=== PATIENT | male | born 1995 | race Caucasian/White ===

== ENCOUNTER 2024-07-09 15:54 | Emergency (ER) | payer OTHER, SELFPAY ==
[2024-07-09 15:54] VITALS: BP 147/91; PULSE 79; RESP 14; TEMP 36.6; O2SAT 98; BMI 26.3
--- NOTE | 2024-07-09 16:07 | CT_ITS ---
PROCEDURE: SINUS/FACIAL BONE REASON FOR EXAM: LEFT ORBITAL TRAUMA TECHNIQUE: CT of the paranasal sinuses without contrast. Coronal and Sagittal reconstruction series were provided. One or more dose reduction techniques were used (e.g., Automated exposure control, adjustment of the mA and/or kV according to patient size, use of iterative reconstruction technique). FINDINGS: Correlated with CT performed at the same time. Normal mandible. Normal zygomatic arches. Normal nasal bones. Pterygoid plates maintained. There is concavity to the medial wall of the left orbit which may be acute. However this could represent a nondisplaced fracture which could be the culprit for the infraorbital air CT/Sinus/Facial Bone IMPRESSION: Fracture of the medial wall of the left orbit probably the source of the infrao rbital air on the left side Reading [facility]
--- NOTE | 2024-07-09 16:07 | CT_ITS ---
PROCEDURE: SPINE CERVICAL WITHOUT CONTRAS 07/09/2024 REASON FOR EXAM: TRAUMA TECHNIQUE: Cervical spine CT without contrast. Coronal and Sagittal reconstruction series were provided. One or more dose reduction techniques were used (e.g., Automated exposure control, adjustment of the mA and/or kV according to patient size, use of iterative reconstruction technique RADIATION DOSE SUMMARY: DLP: 390.70 mGycm COMPARISON: None. FINDINGS: No evidence acute fracture or dislocation. Vertebral body heights are maintained. The soft tissues are unremarkable. CT/Spine Cervical without Contras IMPRESSION: NO ACUTE CERVICAL FRACTURE Reading Location: [place] [id number]
--- NOTE | 2024-07-09 16:07 | CT_ITS ---
PROCEDURE: CT CHEST, ABD, PEL W/CONTRAST 07/09/2024 REASON FOR EXAM: POLY TRAUMA TECHNIQUE: Chest, abdomen and pelvis CT with intravenous contrast. Coronal and Sagittal reconstruction series were provided. One or more dose reduction techniques were used (e.g., Automated exposure control, adjustment of the mA and/or kV according to patient size, use of iterative reconstruction technique. PATIENT PREPARATION: Per protocol ORAL CONTRAST TYPE: None. AMOUNT: mL CONTRAST: Isovue 3 7 VOLUME: 97mL Gauge IV RADIATION DOSE SUMMARY: DLP: 196.81 mGycm COMPARISON: None. FINDINGS: CT CHEST: Hardware: Unremarkable Lymph nodes: Unremarkable Heart and Vasculature: Unremarkable Lungs and Airways: Unremarkable Pleura: Unremarkable Bones: Unremarkable CT ABDOMEN/PELVIS: Liver: Right hepatic cyst. Gallbladder: Unremarkable Spleen: Unremarkable Pancreas: Unremarkable Adrenals: Unremarkable Kidneys: Unremarkable Bladder: Unremarkable Reproductive Organs: Unremarkable Bowel: Unremarkable Appendix: Unremarkable Lymph nodes: Unremarkable Vasculature: Unremarkable Peritoneum / Retroperitoneum: Unremarkable Bones: Unremarkable CT/CT Chest, Abd, Pel w/Contrast IMPRESSION: No acute traumatic abnormalities of the chest, abdomen, or pelvis. Reading Location: [place] [id number]
--- NOTE | 2024-07-09 16:07 | CT_ITS ---
PROCEDURE: BRAIN/HEAD WITHOUT CONTRAST 07/09/2024 REASON FOR EXAM: TRAUMA TECHNIQUE: Head CT without intravenous contrast. Coronal and Sagittal reconstruction series were provided. One or more dose reduction techniques were used (e.g., Automated exposure control, adjustment of the mA and/or kV according to patient size, use of iterative reconstruction technique. FINDINGS: No intracranial mass. No intracranial hemorrhage. No hydrocephalus. Bony calvarium intact. There is air beneath the left eyelid. On the prior study there is a finding which was similar on the earlier sinus CT. I do not see evidence of an orbital abscess. This air appears to be intraorbital but extra conal. I do not see adjacent sinus pathology. Has there been penetrating injury? CT/Brain/Head without Contrast IMPRESSION: Intraorbital but extra conal air to the left orbit. No postseptal gas or intra conal gas. The left globe appears intact. Is there any history of penetrating injury. No foreign body Reading Location: [facility]
--- NOTE | 2024-07-09 16:10 | EX.ED.DYSGE1 ---
HPI History of Present Illness Chief Complaint: Other, Pain/Inj Informant: patient Narrative Narrative: 29-year-old male presenting to the emergency room with chest and head injury. Patient was on a standing industrial lawnmower when he believes he hit a stump and went forward. Unsure of what he hit his chest and his head on. He did have glasses on. He notes bleeding from the left eye. He states that he has blurry vision out of the left eye. Patient notes bruising to the chest. He notes a prior substance abuse history would like to be judicious with pain medication but would like something for it. No reported loss of consciousness. Unknown last tetanus. She denies any arm leg or abdominal pain. Patient states that he blew his nose/sneezed and felt a air around his left orbit. [facility] Medical History (Updated 07/09/24 @ 17:[address] Brandon Mccord DO) Acid reflux Home Medications ?Medication ?Instructions ?Recorded ?Last Taken ?Type etodolac 300 mg capsule 300 mg PO TIDCM ##30 11/20/13 Unknown Rx omeprazole 20 mg capsule,delayed 20 mg PO DAILY 11/20/13 Unknown History release Allergy/AdvReac Type Severity Reaction Status Date / Time oxycodone (Oxycodone) AdvReac Other Verified 07/09/24 15:55 Social History Smoking Status: Current every day smoker tobacco type: cigarettes ROS ROS ED Constitutional Constitutional ED: Denies chills, fever(s) or weight loss Eyes Eyes: Reports blurry vision and change in vision; Denies diplopia ENT ENT ED: Denies ear pain, rhinorrhea or sore throat Cardiovascular Cardiovascular: Reports chest pain; Denies orthopnea, palpitations or racing heartbeat Respiratory/Chest Respiratory/Chest: Denies cough, dyspnea or orthopnea Gastrointestinal Gastrointestinal: Denies abdominal pain, diarrhea, nausea or vomiting Genitourinary Genitourinary ED: Denies dysuria, hematuria or urinary frequency Musculoskeletal Musculoskeletal: Denies arthralgias or myalgias Integumentary Reports other Details: Periorbital laceration ; Denies abscess or rash Neurologic Neurologic: Denies headache(s) or weakness Psychiatric Psychiatric: Denies anxiety, depression, suicidal ideation or suicidal thoughts Endocrine Endocrinology: Denies polydipsia, polyphagia or polyuria Allergic/Immunologic Allergic/Immunologic ED: Denies mouth swelling, tongue swelling or urticaria EXAM Physical Exam Const Vital Signs: 07/09/24 15:54 07/09/24 16:21 07/09/24 16:23 Temperature 98 F Temperature Source Oral Pulse Rate 79 Respiratory Rate 14 Respiratory Effort Normal Non-Labored Normal Non-Labored Respiratory Depth Normal Respiratory Pattern Irregular Normal Blood Pressure 147/91 H Blood Pressure Mean 109 Pulse Ox 98 Oxygen Delivery Method Room Air Room Air 07/09/24 16:54 07/09/24 17:00 Temperature Temperature Source Pulse Rate 70 77 Respiratory Rate 18 16 Respiratory Effort Respiratory Depth Respiratory Pattern Blood Pressure 152/95 H 152/95 H Blood Pressure Mean 114 114 Pulse Ox 98 97 Oxygen Delivery Method Room Air Room Air Positive well nourished, well developed and obese General Appearance ED: well developed and NAD Nutritional Appearance: obese HEENT Reports normocephalic, head/scalp atraumatic and moist mucous membranes Eyes Eyes Narrative: Left eye shows mydriasis to about 6 mm the pupil appears slightly irregular. I do not appreciate a hyphema. Patient states that he can see color but everything is blurry. He does note a pink tinge to his vision. Extraocular motions are intact. He has a laceration extending from eyebrow down to the medial aspect of the orbital region and then a another laceration extending from the medial aspect just underneath the inferior orbital rim. There is periorbital swelling and mild venous bleeding. No palpable subcutaneous emphysema. Oropharyngeal exam appears normal. No trismus. There is no septal hematoma in the nares. Neck no lymphadenopathy, supple and no JVD Chest Wall Chest Narrative: Bruising of the anterior chest wall mild tenderness to palpation Resp normal respiratory effort and clear to auscultation bilaterally Cardio regular rate, regular rhythm and no murmurs GI normal to inspection, nondistended, normoactive bowel sounds and non-tender Palpation: soft Back/Spine no CVA tenderness and normal ROM Extremity normal to inspection General Extremety ED: Negative for edema General Extremity: Negative for edema Neuro oriented x3 and CN's II-XII intact bilaterally Sensorium / Orientation: alert Motor Exam: strength 5/5 throughout Psych mental status grossly normal Mood & Affect: Negative for depressed or tearful Skin no rashes or lesions noted Skin Narrative: See HEENT exam MDM MDM MDM Narrative Medical decision making narrative: Differential diagnosis includes but not limited to intracranial hemorrhage skull fracture orbital fracture ruptured globe traumatic mydriasis cervical spine fracture chest wall contusion pulmonary contusion cardiac contusion Tetanus was updated and the patient received Ancef. Trauma scams were obtained. No active hemorrhage was noted. There is a medial orbital wall fracture with intraorbital air but extraconal air. No chest or abdominal pathology was noted on the CTs. Cervical spine did not demonstrate fracture. I spoke with the patient and recommending transfer to trauma center. I spoke with from trauma surgery at [facility] as well as their emergency attending and the patient will be transferred forth with. History & Record Review Discussion w/independent historian: Patient Lab Data Attestation: I reviewed the patient's lab results. Labs: Laboratory Results - last 24 hr 07/09/24 16:12 WBC 9.7 RBC 5.21 Hgb 16.0 Hct 47.3 MCV 90.8 MCH 30.7 MCHC 33.8 RDW Std Deviation 43.5 RDW Coeff of Nemo 13.0 Plt Count 301 MPV 8.8 Immature Gran % (Auto) 0.400 Neut % (Auto) 53.4 Lymph % (Auto) 36.9 Drew % (Auto) 7.9 Eos % (Auto) 1.1 Baso % (Auto) 0.3 Absolute Neuts (auto) 5.2 Absolute Lymphs (auto) 3.59 Nucleated RBC % 0 Sodium 137 Potassium 2.8 L Chloride 101 Carbon Dioxide 21.2 Anion Gap 15 BUN 9 Creatinine 0.93 Estim Creat Clear Calc 122.58 Est GFR (MDRD) Non-Af 112 BUN/Creatinine Ratio 9.2 L Glucose 153 H Calcium 9.1 Total Bilirubin 0.86 Direct Bilirubin 0.39 H AST 27 ALT 30 Alkaline Phosphatase 70 Troponin T High Sens < 6 Total Protein 7.0 Albumin 4.6 Globulin 2.4 Lipase 22 Radiography Diagnostic Testing: Clinical Impression(s) from Imaging Studies Brain CT 07/09/24 16:07 IMPRESSION: Intraorbital but extra conal air to the left orbit. No postseptal gas or intraconal gas. The left globe appears intact. Is there any history of penetrating injury. No foreign body Reading [facility] Cervical Spine CT 07/09/24 16:07 IMPRESSION: NO ACUTE CERVICAL FRACTURE Reading Location: [id number] Chest/Abdomen/Pelvis CT 07/09/24 16:07 IMPRESSION: No acute traumatic abnormalities of the chest, abdomen, or pelvis. Reading Location: [id number] Facial/Sinus 07/09/24 16:07 IMPRESSION: Fracture of the medial wall of the left orbit probably the source of the infraorbital air on the left side Reading [facility] Management Discussion w/another healthcare provider: Lint Cleaner (Dr Tipton (Trauma - [facility]) / Dr Garza ([facility])) Discharge Plan Triage Chief Complaint: Other, Pain/Inj ED Provider: Brandon Mccord Dx/Rx/DC Orders Clinical Impression: Medial orbital wall fracture, Traumatic mydriasis, Facial laceration, Chest wall contusion Prescriptions: No Action omeprazole 20 MG capsule 20 mg PO DAILY etodolac 300 MG capsule 300 mg PO TIDCM Qty: 30 0RF Rx Instructions: with food Primary Care Provider: Care Physician,No Primary Referrals: Care Physician,No Primary [Primary Care Provider] - Print Language: Kinyarwanda Disposition Disposition: Acute Care Hospital Discharge Location: [facility]
[2024-07-09] MEDS: Morphine 4 MG/ML Syringe IV (16:16)
[2024-07-09] MEDS: Ondansetron 4 MG/2 ML Vial IV (16:16)
[2024-07-09] MEDS: 0.9% Normal Saline (1000mL) 1,000 ML 1000 ML IV (16:16)
[2024-07-09] MEDS: Diphth,Pertuss(Acell),Tet Vac 0.5 ML Vial IM (16:18)
[2024-07-09 16:24] LABS: Absolute Lymphocyte Count 3.59 X10^3/uL (0.83-4.51); Absolute Neutrophil Count 5.2 X10^3/uL (2.0-7.7); Basophil# 0.03 X10^3/uL; Basophil% 0.3 % (0-1); Eosinophil# 0.11 X10^3/uL; Eosinophils% 1.1 % (0-5); Hematocrit 47.3 % (40-54); Lymphocyte # 3.59 X10^3/ul (0.83-4.51); Lymphocyte % 36.9 % (19-41); Mean Corp Hgb Conc 33.8 g/dL (32-36); Mean Corpuscular Hgb 30.7 pg (27.0-32.0); Mean Corpuscular Volume 90.8 fL (80-94); Mean Platelet Vol. 8.8 fl (6.2-12.0); Monocyte# 0.77 X10^3/uL; Monocyte% 7.9 % (0-10); NRBC Flagged by Analyzer 0 % (0-5); Neutrophil # 5.18 X10^3/uL (2.7-7.7); Neutrophil % 53.4 % (47-70); Platelet Count 301 K/mm3 (150-450); RBC Distribution Width SD 43.5 fl (35.1-43.9); Red Blood Count 5.21 M/mm3 (4.6-6.2); White Blood Count 9.7 K/mm3 (4.4-11.0)
[2024-07-09 16:44] LABS: AST(SGOT) 27 U/L (<=37); Alanine Aminotransfer ALT/SGPT 30 U/L (<=46); Albumin, Serum 4.6 g/dL (3.5-5.0); Alkaline Phosphatase 70 U/L (40-129); Anion Gap 15 (5-15); BUN 9 mg/dL (4-19); BUN/Creat Ratio 9.2 RATIO (10-20); Bilirubin, Direct 0.39 mg/dL (0.00-0.30); Calcium,Total 9.1 mg/dL (7.6-11.0); Carbon Dioxide 21.2 mmol/L (21.0-32.0); Chloride 101 mmol/L (98-108); Creatinine, Serum 0.93 mg/dL (0.70-1.20); EST Glomerular Filtration Rate 112 (>60); Estimated Creatinine Clearance 122.58 ml/min (50-250); Globulin 2.4 g/dL (2.2-4.2); Glucose 153 mg/dL (70-99); Lipase 22 U/L (13-75); Potassium 2.8 mmol/L (3.3-5.1); Sodium Level 137 mmol/L (133-145); Total Bilirubin 0.86 mg/dL (0.00-1.30)
[2024-07-09] MEDS: Cefazolin 1 GM/50 ML BAG IV (16:50)
[2024-07-09 16:54] VITALS: BP 152/95; PULSE 70; RESP 18; O2SAT 98
[2024-07-09 17:00] VITALS: BP 152/95; PULSE 77; RESP 16; O2SAT 97
[2024-07-09 17:11] LABS: Troponin T High Sensitivity < 6 ng/L (<=22)
[2024-07-09 17:57] LABS: Bacteria 0 SEEN /hpf (None Seen); Mucous, Urine 0 SEEN /hpf (<or=2+); Squamous Epithelial Cells - UA 0 SEEN /hpf (0-5)
[2024-07-09 18:00] VITALS: BP 145/76; PULSE 69; RESP 12; O2SAT 97
[2024-07-09 18:03] LABS: Glucose, Dipstick Normal (Normal); Ketone-Dipstick Negative (Negative); Leukocyte Esterase-Dipstick Negative /ul (Negative); Nitrite-Dipstick Negative (Negative); Occult Blood-Urine Negative /ul (Negative); Protein-Dipstick 30 mg/dl (Negative); Specific Gravity, Urine 1.005 (1.002-1.030); Urine Bilirubin Dipstick Negative (Negative); Urine Urobilinogen Normal (Normal)
[2024-07-09 18:04] LABS: Color, Urine Straw (Yellow); Urine Clarity Clear (Clear)
--- NOTE | 2024-07-09 18:09 | ED.RN ---
due to difficulty having pt transferred out in a timely manner at 1805 [employer] called. Spoke with Marito he said he would call back. at 1807 [employer] called back and stated that transport would arrive in 30-35 minutes.
--- NOTE | 2024-07-09 18:09 | ED.RN ---
I TALKED TO [facility] AND TOLD THEM WE NEEDED THIS TRAUMA PATIENT TO GET OUT OF HERE QUICKLY AND THEY GAVE ME AN ETA OF 90 MIN. I CALLED THEM BACK AND TOLD THEM THE DR SAID IT NEEDS TO BE A PRIORITY 1 AND NEEDED TO BE SOONER. THEY TOLD ME THEY COULD HAVE SOMEONE HERE IN AN HOUR. WE STILL FELT LIKE IT NEEDED TO BE QUICKER SO OUR CHARGE NURSE CALLED FELIZ THE DOCUMENTATION CLERK AT [employer] AND WE NOW HAVE AN ETA OF 30 MIN.
--- NOTE | 2024-07-09 18:15 | CM.ED ---
Social Work: Date of referral: 07/09/2024 Reason for referral: Trauma Referred by: Social Work Identification Patient provided consent for social work visit. Patient stated he was doing ok and was just waiting to be transferred. Patient stated his parents have been with him and recently stepped out of patient's room to discuss when they are going to leave to head to the facility where patient is being transferred to. Deputy Director provided emotional support and patient denied having any other needs/concerns at this time. Cristy Berg, SHROUDMAN, [employer]
[2024-07-09 18:29] LABS: White Blood Cells 0-5 SEEN /hpf (0-5)
[2024-07-09 18:30] LABS: Red Blood Cells-Urine 0-5 SEEN /hpf (0-5)
[2024-07-09 18:50] VITALS: BP 144/82; PULSE 85; RESP 16; TEMP 36.6; O2SAT 99
== END 2024-07-09 19:03 | disposition short-term general hospital (02) ==
PROVIDERS: Emergency Provider Emergency Medicine; Visit Provider Emergency Medicine
DX: S02.832A Fracture of medial orbital wall, left side, initial encounter for closed fracture (principal); H57.04 Mydriasis; Z23 Encounter for immunization; S01.81XA Laceration without foreign body of other part of head, initial encounter; S20.20XA Contusion of thorax, unspecified, initial encounter; W28.XXXA Contact with powered lawn mower, initial encounter; Y93.H9 Activity, other involving exterior property and land maintenance, building and construction; Y99.0 Civilian activity done for income or pay; K21.9 Gastro-esophageal reflux disease without esophagitis; F17.210 Nicotine dependence, cigarettes, uncomplicated; Z79.899 Other long term (current) drug therapy
CPT/HCPCS: 70450; 70486; 71260; 72125; 74177; 80048; 80076; 81001; 83690; 84484; 85025; 90471; 90715; 96361; 96365; 96375; 99285; A4216; J2405